=== PATIENT | female | born 1995 | race Caucasian/White ===

== ENCOUNTER 2024-06-13 11:16 | Outpatient (CLI) | payer OTHER, SELFPAY ==
[2024-06-13 19:08] LABS: Chlamydia DNA Amplified* NOT DETECTED (No Detected); GC DNA Amplified* NOT DETECTED (No Detected)
== END 2024-06-13 11:17 | disposition home or self-care (01) ==
LOC: NFLDREF 11:18
PROVIDERS: Visit Provider Obstetrics & Gynecology
DX: N94.10 Unspecified dyspareunia (principal)
CPT/HCPCS: 87491; 87591